=== PATIENT | male | born 1955 | race Caucasian/White ===

== ENCOUNTER → 2018-06-30 08:12 | Outpatient (CLI) | payer MEDICARE, SELFPAY | PROVIDERS: Visit Provider Physician Assistant | DX: K21.9 Gastro-esophageal reflux disease without esophagitis (principal) | CPT/HCPCS: 83013 ==

== ENCOUNTER → 2019-09-26 08:26 | Outpatient (CLI) | payer MEDICARE, SELFPAY ==
--- NOTE | 2019-09-26 08:29 | DI.RAD.S_ITS ---
PROCEDURE: XR FOOT LT MIN 3V INDICATIONS: pain x3 months, r/o fx TECHNIQUE: 3 views of the foot were acquired. COMPARISON: None. FINDINGS: Bones: No fractures or dislocations. No suspicious bony lesions. Mild first MTP degenerative change. Soft tissues: No tibiotalar joint effusion. Achilles tendon appears normal. IMPRESSION: No evidence acute bony abnormality of the left foot Dictated by: Juan Siddiqui M.D. on 09/26/2019 at 9:03 Approved by: Juan Siddiqui M.D. on 09/26/2019 at 9:03
== END ==
PROVIDERS: Visit Provider Physician Assistant
DX: S99.922A Unspecified injury of left foot, initial encounter (principal); M79.672 Pain in left foot; X58.XXXA Exposure to other specified factors, initial encounter
CPT/HCPCS: 73630

== ENCOUNTER → 2020-08-20 10:57 | Outpatient (CLI) | payer MEDICARE, SELFPAY | PROVIDERS: Visit Provider Physician Assistant | DX: R30.0 Dysuria (principal) | CPT/HCPCS: 87077; 87086; 87186 ==

== ENCOUNTER → 2020-10-16 10:25 | Outpatient (CLI) | payer MEDICARE, SELFPAY | PROVIDERS: Visit Provider Physician Assistant | DX: N34.3 Urethral syndrome, unspecified (principal) | CPT/HCPCS: 87077; 87086; 87186 ==

== ENCOUNTER → 2021-01-01 08:07 | Outpatient (CLI) | payer MEDICARE, SELFPAY ==
[2021-01-01] MEDS: COVID-19 VACC, Ad26(JANSSEN)/PF 0.5 ML IM (08:13)
== END ==
PROVIDERS: PCP Family Medicine; Visit Provider Internal Medicine
DX: Z23 Encounter for immunization (principal)
CPT/HCPCS: 0031A; 91303

== ENCOUNTER → 2021-01-28 09:09 | Outpatient (CLI) | payer MEDICARE, SELFPAY | PROVIDERS: PCP Family Medicine; Visit Provider Physician Assistant | DX: N30.01 Acute cystitis with hematuria (principal) | CPT/HCPCS: 87086 ==

== ENCOUNTER → 2021-02-09 12:04 | Outpatient (CLI) | payer MEDICARE, SELFPAY ==
[2021-02-09 12:16] LABS: Bacteria Urine None Seen; RBC Urine None Seen (0-5/HPF); WBC Urine None Seen (0-5/HPF)
[2021-02-09 12:43] LABS: Appearance Urine UA CLEAR; Bilirubin Urine UA NEGATIVE (NEGATIVE); Color Urine UA YELLOW; Glucose Urine UA NEGATIVE (Negative); Ketones Urine UA NEGATIVE (NEGATIVE); Leukocyte Esterase Urine UA NEGATIVE (NEGATIVE); Nitrite Urine UA NEGATIVE (Negative); Occult Blood Urine UA NEGATIVE (Negative); Protein Urine UA NEGATIVE (Negative); Specific Gravity Urine UA >=1.030 (1.000-1.035); Urobilinogen Urine UA 0.2 E.U./dL (0.2)
[2021-02-09 12:52] LABS: Culture Indicated Urine Cult Not Indicated; Urine Comments Microscopic Normal
== END ==
PROVIDERS: PCP Family Medicine; Referring Provider Family Medicine; Visit Provider Family Medicine
DX: N30.01 Acute cystitis with hematuria (principal)
CPT/HCPCS: 81001

== ENCOUNTER → 2021-04-30 16:37 | Outpatient (CLI) | payer MEDICARE, SELFPAY | PROVIDERS: PCP Family Medicine; Referring Provider Physician Assistant; Visit Provider Physician Assistant | DX: N34.3 Urethral syndrome, unspecified (principal) | CPT/HCPCS: 87086 ==

== ENCOUNTER → 2021-07-14 09:39 | Outpatient (CLI) | payer MEDICARE, SELFPAY ==
[2021-07-14 10:22] LABS: Add Manual Diff / Slide Review NO; Basophils Absolute Auto 0 /uL (0-100); Basophils Percent Auto 0.9 % (0-2); Eosinophils Absolute Auto 100 /uL (0-450); Eosinophils Percent Auto 1.2 % (2-4); Hematocrit 42.7 % (41-53); Hemoglobin 14.5 g/dL (13.5-17.5); Lymphocytes Absolute Auto 1200 /uL (1100-4500); Lymphocytes Percent Auto 28.3 % (25-40); Mean Corpuscular HGB Conc 33.9 % (30-36); Mean Corpuscular Hemoglobin 32.2 PG (26-34); Mean Corpuscular Volume 94.8 fL (80-100); Monocytes Absolute Auto 300 /uL (0-900); Monocytes Percent Auto 7.9 % (3-14); Neutrophils Absolute Auto 2600 /uL (1500-7000); Neutrophils Percent Auto 61.7 % (50-75); Platelet Count 173 X10^3/uL (150-400); Red Cell Distribution Width 12.8 % (11.6-14.8); White Blood Cell Count 4.3 X10^3/uL (4.5-11.0)
[2021-07-14 11:02] LABS: Alanine Aminotransferase 24 IU/L (<50); Albumin 4.3 g/dL (3.5-5.0); Albumin Globulin Ratio 1.6 (1.0-2.8); Alkaline Phosphatase 48 U/L (38-126); Aspartate Aminotransferase 29 IU/L (17-59); BUN Creatinine Ratio 14.3 (6-22); Bilirubin Total 0.9 mg/dL (0.2-1.3); Blood Urea Nitrogen 12 mg/dL (9-20); Calcium 9.5 mg/dL (8.4-10.2); Carbon Dioxide 32 mmol/L (22-32); Chloride 102 mmol/L (98-107); Cholesterol 224 mg/dL (140-199); Estimated Glomerular Filt Rate > 60.0 mL/min (>60); Globulin 2.7 g/dL (1.7-4.1); Glucose 110 mg/dL (80-110); HDL Cholesterol 65 mg/dL (40-60); HEMOLYSIS < 15 (0-50); LDL Cholesterol Calculated 146 mg/dL (<100); Potassium 4.6 mmol/L (3.4-5.1); Sodium 138 mmol/L (137-145); Triglycerides 63 mg/dL (35-150)
[2021-07-14 11:30] LABS: Prostate Specific Antigen 2.09 ng/mL (0.10-4.00)
== END ==
PROVIDERS: PCP Family Medicine; Referring Provider Family Medicine; Visit Provider Family Medicine
DX: Z00.00 Encounter for general adult medical examination without abnormal findings (principal); E78.5 Hyperlipidemia, unspecified; N40.0 Benign prostatic hyperplasia without lower urinary tract symptoms
CPT/HCPCS: 36415; 80053; 80061; 84153; 85025

== ENCOUNTER → 2021-10-28 09:28 | Outpatient (CLI) | payer MEDICARE, SELFPAY ==
[2021-10-28 10:28] LABS: COVID19 -Nasal RAPID Negative (Negative)
== END ==
PROVIDERS: PCP Family Medicine; Visit Provider Surgery
DX: Z01.812 Encounter for preprocedural laboratory examination (principal); Z20.822 Contact with and (suspected) exposure to COVID-19
CPT/HCPCS: 87635; C9803

== ENCOUNTER 2021-10-29 09:01 | Day surgery (SDC) | payer MEDICARE, SELFPAY ==
--- NOTE | 2021-10-29 | PATH_ITS ---
[facility] Accession Number: [id number] . 01 Material submitted: . cecum - CECAL POLYPS . 02 Diagnosis: Cecal Polyps: Portions of tubular adenoma x2. MRV 11/02/2021 1036 Local . 02 Electronically signed: . Nat Fink MD, Pathologist NPI- [id number] . 01 Gross description: . CECAL POLYPS: Received in formalin are 2 fragment(s) of albrecht, soft tissue measuring 0.2 x 0.2 x 0.2 cm to 0.5 x 0.3 x 0.2 cm submitted entirely in 1 cassette(s) /RYLIE 10/30/2021 0150 Local . 02 Pathologist provided ICD-10: K63.5 . 02 CPT . 996560 Performed at: 01 [facility] [address] [facility], [place], [place] [id number] MD Judd Conner MD Phone: [phone] Performed at: 02 [facility] [address] [place], [place] [id number] MD Marilyn Villafuerte MD Phone: [phone]
[2021-10-29 09:17] VITALS: BP 116/73; PULSE 62; RESP 16; TEMP 36.6; O2SAT 99
[2021-10-29 09:18] VITALS: BMI 26.2
[2021-10-29] MEDS: LACTATED RINGERS 1,000 ML 42 ML IV (09:29)
--- NOTE | 2021-10-29 10:26 | PM.HP.1 ---
History of Present Illness History of Present Illness Date Patient Seen: 10/29/21 Time Patient Seen: 10:26 Chief complaint: SDC Narrative: 58-year-old man with no family history of colon cancer and no changes to bowel function in for a colonoscopy. He has never had a colonoscopy before or any other type of colon cancer screening. Patient History Medical History (Updated 10/29/21 @ 10:27 by Yakov Clark MD) Avulsion of skin of finger Back strain BPH (benign prostatic hyperplasia) Hyperlipidemia Nail avulsion, finger Pelvic pain in male UTI (urinary tract infection) Well adult exam Family & Social History Social History: household members spouse Tobacco & Substance use: Smoking Status Never smoker alcohol intake never Substance Use Type does not use Meds Home Medications and Allergies Home Medications Medication Instructions Recorded Confirmed Type tamsulosin 0.4 mg capsule 0.4 mg PO BEDTIME #90 cap 08/12/21 10/29/21 Rx Allergies Allergy/AdvReac Type Severity Reaction Status Date / Time No Known Drug Allergies Allergy Verified 10/29/21 09:15 Exam Vital Signs (past 8 hours): - 10/29/21 09:17 Temperature 97.9 F Pulse Rate 62 Respiratory Rate 16 Blood Pressure 116/73 Pulse Oximetry 99 Oxygen Delivery Method Room Air Const General: healthy appearing Eyes General: appearance normal, both eyes and all related structures Resp Effort & Inspection: normal respiratory effort GI Inspection: normal to inspection Assessment & Plan Assessment and plan (1) Colon cancer screening: Status: Acute Plan Will proceed with colonoscopy. We reviewed the risks and benefits and he would like to proceed. COVID-19 COVID-19 status: Negative Result date/Date tested (Pos, Neg/Pending): 10/28/21 Time Spent With Patient Critical Care time: I spent a total of [] minutes of critical care time on this patient's care today; this time is exclusive of procedural time.
[2021-10-29] MEDS: MIDAZOLAM 5 MG/5 ML VIAL IV (10:35)
[2021-10-29] MEDS: fentaNYL 250 MCG/5 ML INJ IV (10:36)
--- NOTE | 2021-10-29 11:08 | PM.OP.COLON ---
Operative Date/Time/Diagnoses Date of procedure: 10/29/21 Time of procedure: 11:08 Pre-op diagnosis: Colon cancer screening Post-op diagnosis: same Procedure & Clinicians Study performed: Colonoscopy Same procedure as scheduled: Yes Indications: Colon cancer screening Surgeon: Yakov Clark Procedure Notes SCOAP/Timeout: Yes Procedure in detail: Procedure: The patient was brought to the endoscopy suite, placed in left lateral decubitus position. The patient was connected to monitoring devices. A time-out was performed. Sedation was administered. Once the patient was adequately sedated, a digital rectal exam was performed and was normal. The scope was then inserted and advanced to the cecum where the appendiceal orifice was identified and photographed. The scope was then slowly withdrawn over greater than 6 minutes. Mucosa was thoroughly inspected. There were 2 polyps in the cecum. One was about 3 mm and 1 was about 8 mm. The smaller polyp was removed with forceps. Larger polyp was a sessile polyp and was lifted with a saline lift and removed with cold snare. The rest of the colon was normal aside from a few scattered diverticula. The scope was retroflexed in the rectum. No other abnormalities were noted. The scope was straightened and removed. The patient was awakened and brought to recovery. Versed: 3 mg Fentanyl: 175 mcg EBL: 3 mL Findings: 2 cecal polyps and scattered diverticula predominantly in the sigmoid colon. Scope withdrawal time: 14 Sedation minutes: 30 Findings: divertiulosis and polyp(s) Post-procedure Recommendations: Will call with biopsy results Disposition: PACU
[2021-10-29 11:10] VITALS: BP 104/67; PULSE 58; RESP 11; TEMP 36.2; O2SAT 95
[2021-10-29 11:15] VITALS: BP 98/68; PULSE 56; RESP 12; O2SAT 96
[2021-10-29 11:20] VITALS: BP 110/65; PULSE 54; RESP 11; TEMP 37; O2SAT 95
[2021-10-29 11:25] VITALS: BP 107/65; PULSE 65; RESP 15; TEMP 36.7; O2SAT 96
== END 2021-10-29 11:38 | disposition home or self-care (01) ==
PROVIDERS: PCP Family Medicine; Referring Provider Surgery; Visit Provider Surgery
PROC: 0DJD8ZZ Inspection of Lower Intestinal Tract, Via Natural or Artificial Opening Endoscopic (ICD-10-PCS; CPT 45378; principal; 2021-10-29 10:00)
DX: Z12.11 Encounter for screening for malignant neoplasm of colon (principal); D12.0 Benign neoplasm of cecum
CPT/HCPCS: 45381; 45385; 45380; 99152; 99153; J2250; J3010

== ENCOUNTER → 2022-12-23 13:58 | Outpatient (CLI) | payer MEDICARE, SELFPAY | PROVIDERS: PCP Family Medicine; Visit Provider Registered Nurse | DX: N39.0 Urinary tract infection, site not specified (principal) | CPT/HCPCS: 87086 ==

== ENCOUNTER → 2023-04-05 14:07 | Outpatient (CLI) | payer MEDICARE, SELFPAY | PROVIDERS: PCP Family Medicine; Visit Provider Physician Assistant | DX: N39.0 Urinary tract infection, site not specified (principal) | CPT/HCPCS: 87086 ==

== ENCOUNTER → 2023-11-21 07:14 | Outpatient (CLI) | payer MEDICARE, SELFPAY ==
[2023-11-21 07:57] LABS: Hematocrit 42.9 % (41-53); Hemoglobin 14.8 g/dL (13.5-17.5); Mean Corpuscular HGB Conc 34.4 % (30-36); Mean Corpuscular Hemoglobin 32.4 PG (26-34); Mean Corpuscular Volume 94.1 fL (80-100); Platelet Count 165 X10^3/uL (150-400); Red Blood Cell Count 4.56 X10^6/uL (4.5-5.9); Red Cell Distribution Width 12.9 % (11.6-14.8); White Blood Cell Count 4.4 X10^3/uL (4.5-11.0)
[2023-11-21 08:13] LABS: Neutrophils Absolute Manual 2420 /uL (3000-5900); RBC Morphology Normal Morphology; Total Cells Counted 100
[2023-11-21 08:40] LABS: Alanine Aminotransferase 23 IU/L (<50); Albumin Globulin Ratio 1.4 (1.0-2.8); Alkaline Phosphatase 55 U/L (38-126); Aspartate Aminotransferase 28 IU/L (17-59); BUN Creatinine Ratio 12.6 (6-22); Bilirubin Total 1.1 mg/dL (0.2-1.3); Blood Urea Nitrogen 12 mg/dL (9-20); Calcium 9.3 mg/dL (8.4-10.2); Carbon Dioxide 27 mmol/L (22-32); Chloride 103 mmol/L (98-107); Cholesterol 198 mg/dL (140-199); Estimated Glomerular Filt Rate > 60 mL/min (>60); Globulin 2.8 g/dL (1.7-4.1); Glucose 107 mg/dL (80-110); HDL Cholesterol 54 mg/dL (40-60); HEMOLYSIS < 15 (0-50); LDL Cholesterol Calculated 133 mg/dL (<100); Potassium 4.3 mmol/L (3.4-5.1); Sodium 136 mmol/L (137-145); Total Protein 6.8 g/dL (6.3-8.2); Triglycerides 57 mg/dL (35-150)
== END ==
LOC: LAB 07:15
PROVIDERS: PCP Family Medicine; Referring Provider Family Medicine; Visit Provider Family Medicine
DX: Z00.00 Encounter for general adult medical examination without abnormal findings (principal); E78.5 Hyperlipidemia, unspecified; N40.0 Benign prostatic hyperplasia without lower urinary tract symptoms
CPT/HCPCS: 36415; 80053; 80061; 84153; 85025

== ENCOUNTER → 2024-06-12 07:53 | Outpatient (CLI) | payer MEDICARE, SELFPAY | PROVIDERS: PCP Family Medicine; Referring Provider Physician Assistant Surgical; Visit Provider Physician Assistant Surgical | DX: R39.9 Unspecified symptoms and signs involving the genitourinary system (principal) | CPT/HCPCS: 87077; 87086; 87147 ==

== ENCOUNTER → 2024-06-14 07:26 | Outpatient (CLI) | payer MEDICARE, SELFPAY | PROVIDERS: PCP Family Medicine; Visit Provider Student in an Organized Health Care Education/Training Program | DX: R30.0 Dysuria (principal) | CPT/HCPCS: 87086 ==

== ENCOUNTER → 2024-10-29 10:46 | Outpatient (CLI) | payer MEDICARE, SELFPAY ==
[2024-10-30 09:12] LABS: Interpretation Negative (Negative)
== END ==
PROVIDERS: PCP Family Medicine; Referring Provider Nurse Practitioner Family
DX: K21.9 Gastro-esophageal reflux disease without esophagitis (principal)
CPT/HCPCS: 83013

== ENCOUNTER 2025-04-27 08:16 | Emergency (ER) | payer MEDICARE, SELFPAY ==
[2025-04-27 08:26] VITALS: BP 140/65; PULSE 63; RESP 18; TEMP 36.8; O2SAT 97; BMI 26.4
--- NOTE | 2025-04-27 08:29 | DI.RAD.S_ITS ---
PROCEDURE: XR FOOT LT MIN 3V INDICATIONS: pain on center of foot after hiking on uneven ground TECHNIQUE: 3 views of the foot were acquired. COMPARISON: [facility], CR, XR FOOT LT MIN 3V, 09/26/2019, 8:26. 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 No acute displaced fracture. No dislocation. Moderate plantar enthesopathy. No suspicious soft tissue calcifications. If there is high concern for further derangement, consider MRI evaluation. Dictated by: Marcus Arguelles M.D. on 04/27/2025 at 8:01 Approved by: Marcus Arguelles M.D. on 04/27/2025 at 8:02
[2025-04-27 08:38] VITALS: PULSE 68
--- NOTE | 2025-04-27 08:41 | ED.LOWEXIN ---
HPI - Extremity Injury (Lower) General Chief Complaint: Extremity Injury, Lower Stated Complaint: Poss LT foot; injured it 4days ago Time Seen by Provider: 04/27/25 08:27 Source: patient Mode of arrival: Ambulatory History of Present Illness HPI Narrative: 70-year-old active healthy male patient history of BPH in dyslipidemia colon polyps history of left ankle fracture status post conservative management presents with left midfoot pain for last 3 4 days for which he has ice and taken ibuprofen but still has pain with ambulation. He is fairly active doing multiple physical activities daily but does not recall 1 inciting event that may have caused this. Patient denies fever, chills, chest pain, shortness breath. Other than what is stated 14 point review of system is negative. Related Data Home Medications ?Medication ?Instructions ?Recorded ?Confirmed red yeast rice 600 mg capsule 1,200 mg PO DAILY 09/03/24 12/17/24 Previous Rx's ?Medication ?Instructions ?Recorded tamsulosin 0.4 mg capsule 0.4 mg PO BEDTIME #90 caps 12/17/24 Allergies Allergy/AdvReac Type Severity Reaction Status Date / Time No Known Drug Allergies Allergy Verified 04/27/25 08:26 Review of Systems Review of Systems ROS Unobtainable: All systems reviewed & are unremarkable except as noted in HPI and below Patient History Medical History History of colon polyps Preventative health care Recurrent urinary tract infection Colon cancer screening Hyperlipidemia BPH (benign prostatic hyperplasia) Well adult exam Pelvic pain in male Nail avulsion, finger Avulsion of skin of finger Back strain UTI (urinary tract infection) Family History Mother Renal failure Father UTI (urinary tract infection) Social History marital status: number of children: 1 household members: spouse Previous occupational history: Former [employer] Work[employer] Smoking Status: Never smoker alcohol intake: never substance use type: does not use caffeine: Yes 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 Well-developed patient, in mild distress. HEAD: Atraumatic. Normocephalic. EYES: Pupils equal round and reactive. Extraocular motions intact. No scleral icterus. No injection or drainage. EXTREMITIES: L dorsum mid foot TTP over 2,3,4 MT joint with soft tissue swelling, motor/sensory intact +2DP +2PT cap refill <2secs BACK: Nontender without deformity or crepitance. No flank tenderness. NEURO: AOx3. SKIN: No rash or erythema of visible areas Initial Vital Signs Initial Vital Signs: Vital Signs Temperature 98.3 F 04/27/25 08:26 Pulse Rate 63 04/27/25 08:26 Respiratory Rate 18 04/27/25 08:26 Blood Pressure 140/65 04/27/25 08:26 Pulse Oximetry 97 04/27/25 08:26 Oxygen Delivery Method Room Air 04/27/25 08:26 Course Orders Ordered: ED Orders 04/27/25 08:29 XR foot LT min 3V Stat Vital Signs Vital signs: Vital Signs - 8 hr 04/27/25 08:26 04/27/25 08:38 Temperature 98.3 F Pulse Rate 63 Pulse Rate [Left Posterior Tibial] 68 Respiratory Rate 18 Blood Pressure 140/65 Pulse Oximetry 97 Oxygen Delivery Method Room Air MDM - Extremity Injury (Lower) Imaging Data Extremity x-ray #1: Radiologist's Impression: [address] [address] XRay Report Signed Patient: Rohan Thornton MR#: [id number] : 1955 Acct:[id number] Age/Sex: 70 / M Date of Service: 04/27/25 Loc: ED Accession Number: [id number] Procedure: XR foot LT min 3V Ordering Provider: Trent Decker D.O. PROCEDURE: XR FOOT LT MIN 3V INDICATIONS: pain on center of foot after hiking on uneven ground TECHNIQUE: 3 views of the foot were acquired. [facility] 8:26. 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 No acute displaced fracture. No dislocation. Moderate plantar enthesopathy. No suspicious soft tissue calcifications. If there is high concern for further derangement, consider MRI evaluation. Dictated by: Marcus Arguelles M.D. on 04/27/2025 at 8:01 Approved by: Marcus Arguelles M.D. on 04/27/2025 at 8:02 [facility] Narrative Medical decision making narrative: Vital signs, nurse triage note, medication list, previous ER visits, and all imaging studies reviewed. X-ray showed mild 1st MTP and midfoot arthrosis. No acute displaced fracture no dislocation. Moderate plantar enthesopathy. No suspicious soft tissue calcification. Differential diagnosis include fracture, dislocation, contusion, sprain, arthritis. Patient will follow up with PCP in 1-2 week if no improvement in symptoms and to ice and elevate. Discharge Plan Departure Patient Disposition: Home Clinical Impression: Acute foot pain Qualifiers: Laterality: left Qualified Code(s): M79.672 - Pain in left foot Instructions: DI for Foot Pain Activity Restrictions/Additional Instructions: Return with new or worsening symptoms. Follow up PCP in 1-2 weeks if no improvement in symptoms. Take Tylenol and or ibuprofen for pain control and to ice and elevate as needed for pain and swelling. Prescriptions: No Action tamsulosin 0.4 mg capsule 0.4 mg PO BEDTIME Qty: 90 3RF Rx Instructions: keep at one capsule bedtime red yeast rice 600 mg capsule 1,200 mg PO DAILY Rx Instructions: give with meal/snack Referrals: Wilfred Perez DO [Primary Care Provider, Family Practice] Stand Alone Forms: Patient Portal/API
[2025-04-27 09:23] VITALS: BP 134/70; PULSE 65; RESP 18; TEMP 36.7; O2SAT 98
== END 2025-04-27 09:23 | disposition home or self-care (01) ==
PROVIDERS: Emergency Provider Family Medicine; PCP Family Medicine
DX: M79.672 Pain in left foot (principal)
CPT/HCPCS: 73630; 99281; 99283